=== PATIENT | female | born 1950 | race Caucasian/White ===

== ENCOUNTER 2020-04-04 11:45 | Emergency (ER) | payer MEDICARE, BC ==
[2020-04-04 12:15] VITALS: BP 136/62; PULSE 62
[2020-04-04 12:49] LABS: ANION GAP 11.2 mEq/L (7-13); CHLORIDE,CL 103 mmol/L (98-107); SODIUM,NA 139 mmol/L (136-145)
--- NOTE | 2020-04-04 12:53 | EDM.PDOC ---
ED HPI GENERAL MEDICAL PROBLEM - General Chief Complaint: Cardiovascular Problem Stated Complaint: HIGH BLOOD PRESSURE Time Seen by Provider: 04/04/20 12:10 Source of Information: Reports: Patient, Old Records, RN, RN Notes Reviewed History Limitations: Reports: No Limitations - History of Present Illness INITIAL COMMENTS - FREE TEXT/NARRATIVE: Patient presents to the ED via personal vehicle with complaints of hypertension. Per the patient report, she awoke with a headache and nausea, which she says is typical for her when her blood pressure is elevated. She states she took her prescribed Verapamil SR 120mg and rechecked her blood pressure; the reading was 216/103. She states she then took her Lisinopril 10mg, which she was instructed by her PCP to take PRN when her "blood pressure gets too high." The recheck following that medications was 170/80. She states she called her PCP clinic who then instructed her to report to the ED. She does attest to feeling anxious due to significant stressors, and has recently been prescribed Ativan 0.5mg BID. She also has been recently prescribed an albuterol inhaler for "asthma." - Related Data Allergies Allergy/AdvReac Type Severity Reaction Status Date / Time cephalexin monohydrate Allergy Abdominal Verified 04/04/20 12:20 [From Keflex] Pain NSAIDS (Non-Steroidal Allergy Cannot Verified 04/04/20 12:20 Anti-Inflamma Remember prednisone Allergy Swelling Verified 04/04/20 12:20 Sulfa (Sulfonamide Allergy Rash Verified 04/04/20 12:20 Antibiotics) Home Meds: Home Meds Acetaminophen [Tylenol Extra Strength] 500 mg PO Q4H PRN 09/10/13 [History] Albuterol [Ventolin HFA] 2 puff INH Q4H PRN 09/10/13 [History] B2/Vits A,C,E/Lut/Zeaxanth/Min [Icaps] 2 each PO DAILY 09/10/13 [History] Cholecalciferol (Vitamin D3) [Vitamin D3] 10,000 unit PO Q2D 09/10/13 [History] Cyanocobalamin (Vitamin B12) [Vitamin B12] 1,000 mcg IJ Q30D 09/10/13 [History] FLUoxetine HCl [Fluoxetine HCl] 40 mg PO DAILY 09/10/13 [History] Formoterol/Mometasone [Dulera 100 MCG/5 MCG] 2 puff IH BID PRN 09/10/13 [History] Hydrocodone/Acetaminophen [Hydrocodone-Acetaminophen 5-325] 1 - 2 tab PO Q4H PRN 09/10/13 [History] Lactobacillus Acidophilus [Probiotic] 1 each PO DAILY 09/10/13 [History] Levothyroxine Sodium [Synthroid] 150 mg PO DAILY 09/10/13 [History] QuiNINE [Qualaquin] 648 mg PO ASDIRECTED PRN 09/10/13 [History] Pantoprazole [ProTONIX] 40 mg PO DAILY #30 tab.cr 09/11/13 [Rx] Past Medical History Cardiovascular History: Reports: Hypertension, Other (See Below) Other Cardiovascular History: VALVE LEAK Respiratory History: Reports: Asthma Gastrointestinal History: Reports: Other (See Below) Other Gastrointestinal History: GASTRIC BYPASS Musculoskeletal History: Reports: Other (See Below) Other Musculoskeletal History: pt states her knees need replaced Social & Family History - Family History Family Medical History: Noncontributory - Tobacco Use Tobacco Use Status *Q: Never Tobacco User - Recreational Drug Use Recreational Drug Use: No ED ROS GENERAL - Review of Systems Review Of Systems: Comprehensive ROS is negative, except as noted in HPI. ED EXAM, GENERAL - Physical Exam Exam: See Below Exam Limited By: No Limitations General Appearance: Alert, WD/WN, No Apparent Distress Throat/Mouth: Normal Voice, No Airway Compromise Head: Atraumatic, Normocephalic Neck: Normal Inspection, Supple, Non-Tender, Full Range of Motion Respiratory/Chest: No Accessory Muscle Use, Chest Non-Tender, Rales (Right lower lobes). No: Wheezing, Stridor Cardiovascular: Normal Peripheral Pulses, Regular Rate, Rhythm, No Edema, No Gallop, No Murmur, No Rub Peripheral Pulses: 2+: Radial (L), Radial (R) GI/Abdominal: Normal Bowel Sounds, Soft, Non-Tender, No Distention, No Mass (Female) Exam: Deferred Rectal (Female) Exam: Deferred Back Exam: Normal Inspection, Full Range of Motion. No: CVA Tenderness (L), CVA Tenderness (R) Neurological: Alert, Oriented, CN II-XII Intact Skin Exam: Warm, Dry, Intact, Normal Color, No Rash Course - Vital Signs Last Recorded V/S: Last Vital Signs Temp 97.5 F 04/04/20 12:14 Pulse 62 04/04/20 12:14 Resp 16 04/04/20 12:14 BP 136/62 04/04/20 12:14 Pulse Ox 100 04/04/20 12:14 - Orders/Labs/Meds Orders: Active Orders 24 hr Category Date Time Status EKG Documentation Completion [RC] STAT Care 04/04/20 12:12 Active CULTURE URINE [RM] Stat Lab 04/04/20 12:43 Received Labs: Laboratory Tests 04/04/20 04/04/20 04/04/20 Range/Units 12:24 12:24 12:43 WBC 7.0 (5.0-10.0) 10^3/uL RBC 4.75 (4.2-5.4) 10^6/uL Hgb 13.5 (12.0-16.0) g/dL Hct 42.1 (37.0-47.0) % MCV 88.6 (80-100) fL MCH 28.4 (27.0-34.0) pg MCHC 32.1 L (33.0-35.0) g/dL Plt Count 251 (150-450) 10^3/uL Neut % (Auto) 64.9 (42.2-75.2) % Lymph % (Auto) 25.3 (20.5-50.1) % [place] % (Auto) 7.1 (2-8) % Eos % (Auto) 2.1 (1.0-3.0) % Baso % (Auto) 0.6 (0.0-1.0) % Sodium 139 (136-145) mmol/L Potassium 4.2 (3.5-5.1) mmol/L Chloride 103 (98-107) mmol/L Carbon Dioxide 29 (21-32) mmol/L Anion Gap 11.2 (7-13) mEq/L BUN 11 (7-18) mg/dL Creatinine 0.69 (0.55-1.02) mg/dL Est Cr Clr Drug Dosing 59.15 mL/min Estimated GFR (MDRD) > 60 BUN/Creatinine Ratio 15.9 (No establ ref range) Glucose 99 (74-99) mg/dL Calcium 8.7 (8.5-10.1) mg/dL Total Bilirubin 0.3 (0.2-1.0) mg/dL AST 18 (15-37) U/L ALT 26 (14-59) U/L Alkaline Phosphatase 70 (46-116) U/L Troponin I < 0.017 (0.000-0.056) ng/mL Total Protein 7.3 (6.4-8.2) g/dL Albumin 3.7 (3.4-5.0) g/dL Globulin 3.6 Albumin/Globulin Ratio 1.0 Urine Color Yellow (YELLOW) Urine Appearance Slightly cloudy (CLEAR) Urine pH 6.0 (5.0-9.0) Ur Specific [place] 1.020 (1.005-1.030) Urine Protein Negative (NEGATIVE) Urine Glucose (UA) Negative (NEGATIVE) Urine Ketones Negative (NEGATIVE) Urine Occult Blood Trace-intact H (NEGATIVE) Urine Nitrite Negative (NEGATIVE) Urine Bilirubin Negative (NEGATIVE) Urine Urobilinogen 0.2 (0.2-1.0) mg/dL Ur Leukocyte Esterase Small H (NEGATIVE) Urine RBC 0-5 /HPF Urine WBC 0-5 (0-5/HPF) /HPF Ur Epithelial Cells Few (NOT SEEN) /HPF Urine Opiates Screen (NEGATIVE) Ur Oxycodone Screen (NEGATIVE) Urine Methadone Screen (NEGATIVE) Ur Barbiturates Screen (NEGATIVE) U Tricyclic Antidepress (NEGATIVE) Ur Phencyclidine Scrn (NEGATIVE) Ur Amphetamine Screen (NEGATIVE) U Methamphetamines Scrn (NEGATIVE) Urine MDMA Screen (NEGATIVE) U Benzodiazepines Scrn (NEGATIVE) Urine Cocaine Screen (NEGATIVE) U Marijuana (THC) Screen (NEGATIVE) SARS CoV-2 RNA Rapid REJI (NEGATIVE) 04/04/20 04/04/20 Range/Units 12:43 13:20 WBC (5.0-10.0) 10^3/uL RBC (4.2-5.4) 10^6/uL Hgb (12.0-16.0) g/dL Hct (37.0-47.0) % MCV (80-100) fL MCH (27.0-34.0) pg MCHC (33.0-35.0) g/dL Plt Count (150-450) 10^3/uL Neut % (Auto) (42.2-75.2) % Lymph % (Auto) (20.5-50.1) % [place] % (Auto) (2-8) % Eos % (Auto) (1.0-3.0) % Baso % (Auto) (0.0-1.0) % Sodium (136-145) mmol/L Potassium (3.5-5.1) mmol/L Chloride (98-107) mmol/L Carbon Dioxide (21-32) mmol/L Anion Gap (7-13) mEq/L BUN (7-18) mg/dL Creatinine (0.55-1.02) mg/dL Est Cr Clr Drug Dosing mL/min Estimated GFR (MDRD) BUN/Creatinine Ratio (No establ ref range) Glucose (74-99) mg/dL Calcium (8.5-10.1) mg/dL Total Bilirubin (0.2-1.0) mg/dL AST (15-37) U/L ALT (14-59) U/L Alkaline Phosphatase (46-116) U/L Troponin I (0.000-0.056) ng/mL Total Protein (6.4-8.2) g/dL Albumin (3.4-5.0) g/dL Globulin Albumin/Globulin Ratio Urine Color (YELLOW) Urine Appearance (CLEAR) Urine pH (5.0-9.0) Ur Specific [place] (1.005-1.030) Urine Protein (NEGATIVE) Urine Glucose (UA) (NEGATIVE) Urine Ketones (NEGATIVE) Urine Occult Blood (NEGATIVE) Urine Nitrite (NEGATIVE) Urine Bilirubin (NEGATIVE) Urine Urobilinogen (0.2-1.0) mg/dL Ur Leukocyte Esterase (NEGATIVE) Urine RBC /HPF Urine WBC (0-5/HPF) /HPF Ur Epithelial Cells (NOT SEEN) /HPF Urine Opiates Screen Negative (NEGATIVE) Ur Oxycodone Screen Negative (NEGATIVE) Urine Methadone Screen Negative (NEGATIVE) Ur Barbiturates Screen Negative (NEGATIVE) U Tricyclic Antidepress Negative (NEGATIVE) Ur Phencyclidine Scrn Negative (NEGATIVE) Ur Amphetamine Screen Negative (NEGATIVE) U Methamphetamines Scrn Negative (NEGATIVE) Urine MDMA Screen Negative (NEGATIVE) U Benzodiazepines Scrn Positive H (NEGATIVE) Urine Cocaine Screen Negative (NEGATIVE) U Marijuana (THC) Screen Negative (NEGATIVE) SARS CoV-2 RNA Rapid REJI Negative (NEGATIVE) - Re-Assessments/Exams Free Text/Narrative Re-Assessment/Exam: 04/04/20 12:50 Will obtain CBC, CMP, Troponin, UA/Tox, and EKG 04/04/20 13:17 Will obtain COVID and Chest XRay for shortness of breath. 04/04/20 13:45 COVID negative. 04/04/20 14:19 CXR negative. Patient instructed to follow up with PCP for anxiety medication management. Departure - Departure Time of Disposition: 14:33 Disposition: Home, Self-Care 01 Condition: Good Clinical Impression: Anxiety, Shortness of breath Instructions: Shortness of Breath, Adult, [id number] Forms: ED Department Discharge Additional Instructions: Hypertension/Shortness of Breath work up negative for acute process. 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 Take all BP medications, as prescribed. Follow up with primary care provider regarding blood pressure management. Sepsis Event Note (ED) - Evaluation Sepsis Screening Result: No Definite Risk - Focused Exam Vital Signs: Vital Signs Temp Pulse Resp BP Pulse Ox 04/04/20 12:14 97.5 F 62 16 136/62 100 - My Orders Last 24 Hours: My Active Orders 04/04/20 12:12 EKG Documentation Completion [RC] STAT 04/04/20 12:43 CULTURE URINE [RM] Stat - Assessment/Plan Last 24 Hours: My Active Orders 04/04/20 12:12 EKG Documentation Completion [RC] STAT 04/04/20 12:43 CULTURE URINE [RM] Stat
--- NOTE | 2020-04-04 14:29 | CR ---
EXAMINATION: Chest 2V SEX: Female AGE: 69 years CLINICAL HISTORY: 69-year-old female complaining of Shortness of breath (right lower rales). INTERPRETATION: Negative. 1. 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 2. Normal cardiac silhouette (size and configuration). External traffic monitor specialist leads. No pulmonary vascular congestion, cephalization of flow, alveolar edema or dependent pleural effusion. 3. Surgical clips left upper quadrant and midepigastrium. 4. No lung mass, hilar lymphadenopathy or focal lobar pneumonia. 5. No atelectasis/collapse. No air trapping. 6. No pneumothorax or pneumomediastinum. Midline tracheal bronchial airway unremarkable. CONCLUSION: No acute or chronic cardiopulmonary abnormality.
== END 2020-04-04 14:40 | disposition home or self-care (01) ==
LOC: DL.ED 11:45
DX: F41.9 Anxiety disorder, unspecified (principal); I10 Essential (primary) hypertension; J45.909 Unspecified asthma, uncomplicated; Z79.899 Other long term (current) drug therapy; Z20.828 Contact with and (suspected) exposure to other viral communicable diseases; Z88.1 Allergy status to other antibiotic agents; Z88.8 Allergy status to other drugs, medicaments and biological substances; Z88.2 Allergy status to sulfonamides
CPT/HCPCS: 36415; 71046; 80053; 80305; 81001; 84484; 85025; 87086; 87088; 87186; 93005; 99284; U0002

== ENCOUNTER 2020-04-16 21:20 | Observation (INO) | payer MEDICARE, BC ==
[2020-04-16 22:14] LABS: ANION GAP 13.9 mEq/L (7-13); CHLORIDE,CL 101 mmol/L (98-107); SODIUM,NA 139 mmol/L (136-145)
--- NOTE | 2020-04-16 22:44 | CT ---
PROCEDURE INFORMATION: Exam: CT Head Without Contrast Exam date and time: 04/16/2020 10:28 PM Age: 69 years old Clinical indication: Other: Hypertension, tingling; Additional info: Hypertension, tingling TECHNIQUE: Imaging protocol: Computed tomography of the head without contrast. Radiation optimization: All CT scans at this facility use at least one of these dose optimization techniques: automated exposure control; mA and/or kV adjustment per patient size (includes targeted exams where dose is matched to clinical indication); or iterative reconstruction. COMPARISON: No relevant prior studies available. FINDINGS: Brain: Normal. No hemorrhage. Unremarkable white matter. No mass effect. Cerebral ventricles: No ventriculomegaly. Bones/joints: Unremarkable. No acute fracture. Paranasal sinuses: Visualized sinuses are unremarkable. No fluid levels. Mastoid air cells: Visualized mastoid air cells are well aerated. Vasculature: Atherosclerotic vascular calcifications involving distal vertebral arteries and distal internal carotid arteries bilaterally. Soft tissues: Extracalvarial soft tissues are unremarkable. IMPRESSION: Atherosclerotic vascular calcifications. There is no acute cortical infarction, hemorrhage or Mass.
--- NOTE | 2020-04-16 23:14 | EDM.PDOC ---
ED HPI GENERAL MEDICAL PROBLEM - General Chief Complaint: Cardiovascular Problem Stated Complaint: HIGH BLOOD PRESSURE Time Seen by Provider: 04/16/20 21:25 Source of Information: Reports: Patient History Limitations: Reports: No Limitations - History of Present Illness INITIAL COMMENTS - FREE TEXT/NARRATIVE: ED with c/o high blood pressure today, 180's this am, took 1/2 Lisinopril tonight elevated again, 216/d Had EMT family member recheck and still elevated. headache started earlier in autumn, then right arm felt tingling down to fingertips. No weakness, No change in sensation. . No difficulty with speecjh. Stated took additional 1.2 Lisinopril then drove over hour from [place] to ED. - Related Data Allergies Allergy/AdvReac Type Severity Reaction Status Date / Time cephalexin monohydrate Allergy Abdominal Verified 04/16/20 23:57 [From Keflex] Pain NSAIDS (Non-Steroidal Allergy Cannot Verified 04/16/20 23:57 Anti-Inflamma Remember prednisone Allergy Swelling Verified 04/16/20 23:57 Sulfa (Sulfonamide Allergy Rash Verified 04/16/20 23:57 Antibiotics) Home Meds: Home Meds Acetaminophen [Tylenol Extra Strength] 500 mg PO Q4H PRN 09/10/13 [History] Albuterol [Ventolin HFA] 2 puff INH Q4H PRN 09/10/13 [History] B2/Vits A,C,E/Lut/Zeaxanth/Min [Icaps] 2 each PO DAILY 09/10/13 [History] Cholecalciferol (Vitamin D3) [Vitamin D3] 5,000 unit PO Q2D 09/10/13 [History] FLUoxetine HCl [Fluoxetine HCl] 40 mg PO DAILY 09/10/13 [History] Formoterol/Mometasone [Dulera 100 MCG/5 MCG] 2 puff IH BID PRN 09/10/13 [History] Hydrocodone/Acetaminophen [Hydrocodone-Acetaminophen 5-325] 1 - 2 tab PO Q4H PRN 09/10/13 [History] QuiNINE [Qualaquin] 648 mg PO ASDIRECTED PRN 09/10/13 [History] Aspirin 81 mg PO DAILY 04/16/20 [History] LORazepam [Ativan] 1 dose PO DAILY PRN 04/16/20 [History] Verapamil HCl [Verapamil ER] 120 mg PO DAILY 04/16/20 [History] lisinopriL [Lisinopril] 10 mg PO DAILY PRN 04/16/20 [History] Levothyroxine Sodium [Synthroid] 112 mcg PO ACBREAKFAST 04/17/20 [History] Past Medical History Cardiovascular History: Reports: Hypertension, Other (See Below) Other Cardiovascular History: VALVE LEAK Respiratory History: Reports: Asthma Gastrointestinal History: Reports: Other (See Below) Other Gastrointestinal History: GASTRIC BYPASS Musculoskeletal History: Reports: Other (See Below) Other Musculoskeletal History: pt states her knees need replaced - Past Surgical History Cardiovascular Surgical History: Reports: Other (See Below) Other Cardiovascular Surgeries/Procedures[facility] Social & Family History - Family History Family Medical History: Noncontributory - Tobacco Use Tobacco Use Status *Q: Never Tobacco User Second Hand Smoke Exposure: No - Caffeine Use Caffeine Use: Reports: Soda - Recreational Drug Use Recreational Drug Use: No ED ROS GENERAL - Review of Systems Review Of Systems: Comprehensive ROS is negative, except as noted in HPI. ED EXAM, GENERAL - Physical Exam Exam: See Below Exam Limited By: No Limitations General Appearance: Alert, Anxious Eye Exam: Bilateral Eye: EOMI, Normal Fundi, PERRL Ears: Normal External Exam, Hearing Grossly Normal Nose: Normal Inspection Throat/Mouth: Normal Inspection, Normal Oropharynx Head: Atraumatic, Normocephalic Neck: Normal Inspection, Full Range of Motion Respiratory/Chest: No Respiratory Distress, Lungs Clear, Normal Breath Sounds Cardiovascular: Regular Rate, Rhythm, No Edema GI/Abdominal: Normal Bowel Sounds, Soft, Non-Tender Back Exam: Normal Inspection, Full Range of Motion Extremities: Normal Inspection, Normal Range of Motion Neurological: Alert, Oriented, CN II-XII Intact, Normal Cognition, Normal Gait. No: Abnormal Reflexes, Sensory/Motor Deficit Skin Exam: Warm, Dry, Intact, Normal Color Course - Vital Signs Text/Narrative:: Dr Jonesdmitting patient for observation. HTN emergency. Symptoms resolved. BP improved. Prior to transferring to bed on Medical floor. Last Recorded V/S: Last Vital Signs Temp 96.4 F L 04/16/20 23:54 Pulse 67 04/16/20 23:54 Resp 16 04/16/20 23:54 BP 179/75 H 04/16/20 23:54 Pulse Ox 100 04/16/20 23:54 - Orders/Labs/Meds Orders: Active Orders 24 hr Category Date Time Status CULTURE URINE [RM] Stat Lab 04/16/20 21:25 Received Medication Orders Acetaminophen (Tylenol) 650 mg PO Q4H PRN PRN Reason: Pain (Mild 1-3)/fever Hydrocodone Bitart/Acetaminophen ([place] 325-5 Mg) 1 - 2 tab PO Q4H PRN PRN Reason: Pain Albuterol (Proventil Hfa) 1 - 2 gm INH Q4H PRN PRN Reason: Dyspnea Aspirin (Aspirin) 81 mg PO DAILY ALEJANDRO Cholecalciferol (Vitamin D3) 125 mcg PO ONETIME ONE Stop: 04/17/20 09:01 Enoxaparin Sodium (Lovenox) 40 mg SUBCUT DAILY ALEJANDRO Fluoxetine HCl (Prozac) 40 mg PO DAILY ALEJANDRO Hydralazine HCl (Apresoline) 10 mg IVPUSH Q6H PRN PRN Reason: Hypertension Levothyroxine Sodium (Levothyroxine) 150 mcg PO ACBREAKFAST ALEJANDRO Lisinopril (Prinivil) 10 mg PO DAILY ALEJANDRO Lorazepam (Ativan) 0.5 mg PO DAILY PRN PRN Reason: Anxiety Mometasone Furoate/Formoterol Fumar (Dulera 100-5 Mcg) 2 puff IH BID PRN PRN Reason: Dyspnea Non-Formulary Medication (B2/Vits A,C,E/Lut/Zeaxanth/Min [Icaps]) 2 each PO DAILY ALEJANDRO Non-Formulary Medication (Lactobacillus Acidophilus [Probiotic]) 1 each PO DAILY ALEJANDRO Non-Formulary Medication (Quinine [Qualaquin]) 648 mg PO ASDIRECTED PRN PRN Reason: leg cramps Pantoprazole Sodium (Protonix) 40 mg PO ACBREAKFAST ALEJANDRO Verapamil HCl (Calan Sr) 120 mg PO DAILY ALEJANDRO Zolpidem Tartrate (Ambien) 5 mg PO BEDTIME PRN PRN Reason: Sleep Labs: Laboratory Tests 04/16/20 04/16/20 04/16/20 Range/Units 21:25 21:38 21:38 WBC 6.6 (5.0-10.0) 10^3/uL RBC 4.65 (4.2-5.4) 10^6/uL Hgb 13.4 (12.0-16.0) g/dL Hct 41.1 (37.0-47.0) % MCV 88.4 (80-100) fL MCH 28.8 (27.0-34.0) pg MCHC 32.6 L (33.0-35.0) g/dL Plt Count 258 (150-450) 10^3/uL Neut % (Auto) 55.7 (42.2-75.2) % Lymph % (Auto) 33.1 (20.5-50.1) % [place] % (Auto) 8.4 H (2-8) % Eos % (Auto) 2.0 (1.0-3.0) % Baso % (Auto) 0.8 (0.0-1.0) % PT (9.0-12.0) SEC INR (0.9-1.2) Sodium 139 (136-145) mmol/L Potassium 3.9 (3.5-5.1) mmol/L Chloride 101 (98-107) mmol/L Carbon Dioxide 28 (21-32) mmol/L Anion Gap 13.9 H (7-13) mEq/L BUN 13 (7-18) mg/dL Creatinine 0.81 (0.55-1.02) mg/dL Est Cr Clr Drug Dosing 50.38 mL/min Estimated GFR (MDRD) > 60 BUN/Creatinine Ratio 16.0 (No establ ref range) Glucose 103 H (74-99) mg/dL Calcium 9.1 (8.5-10.1) mg/dL Total Bilirubin 0.2 (0.2-1.0) mg/dL AST 28 (15-37) U/L ALT 34 (14-59) U/L Alkaline Phosphatase 59 (46-116) U/L Troponin I < 0.017 (0.000-0.056) ng/mL Total Protein 7.1 (6.4-8.2) g/dL Albumin 3.7 (3.4-5.0) g/dL Globulin 3.4 Albumin/Globulin Ratio 1.1 TSH, Ultra Sensitive 0.85 (0.36-3.74) uIU/mL Urine Color Yellow (YELLOW) Urine Appearance Clear (CLEAR) Urine pH 5.5 (5.0-9.0) Ur Specific [place] 1.020 (1.005-1.030) Urine Protein Negative (NEGATIVE) Urine Glucose (UA) Negative (NEGATIVE) Urine Ketones Negative (NEGATIVE) Urine Occult Blood Trace-intact H (NEGATIVE) Urine Nitrite Negative (NEGATIVE) Urine Bilirubin Negative (NEGATIVE) Urine Urobilinogen 0.2 (0.2-1.0) mg/dL Ur Leukocyte Esterase Small H (NEGATIVE) Urine RBC 0-5 /HPF Urine WBC 10-20 H (0-5/HPF) /HPF Ur Epithelial Cells Rare (NOT SEEN) /HPF Amorphous Sediment Rare (NOT SEEN) /HPF Urine Bacteria Occasional (0-FEW/HPF) /HPF Urine Mucus Not seen (NOT SEEN) /LPF SARS CoV-2 RNA Rapid REJI (NEGATIVE) 04/16/20 04/16/20 Range/Units 21:38 23:18 WBC (5.0-10.0) 10^3/uL RBC (4.2-5.4) 10^6/uL Hgb (12.0-16.0) g/dL Hct (37.0-47.0) % MCV (80-100) fL MCH (27.0-34.0) pg MCHC (33.0-35.0) g/dL Plt Count (150-450) 10^3/uL Neut % (Auto) (42.2-75.2) % Lymph % (Auto) (20.5-50.1) % [place] % (Auto) (2-8) % Eos % (Auto) (1.0-3.0) % Baso % (Auto) (0.0-1.0) % PT 9.8 (9.0-12.0) SEC INR 1.0 (0.9-1.2) Sodium (136-145) mmol/L Potassium (3.5-5.1) mmol/L Chloride (98-107) mmol/L Carbon Dioxide (21-32) mmol/L Anion Gap (7-13) mEq/L BUN (7-18) mg/dL Creatinine (0.55-1.02) mg/dL Est Cr Clr Drug Dosing mL/min Estimated GFR (MDRD) BUN/Creatinine Ratio (No establ ref range) Glucose (74-99) mg/dL Calcium (8.5-10.1) mg/dL Total Bilirubin (0.2-1.0) mg/dL AST (15-37) U/L ALT (14-59) U/L Alkaline Phosphatase (46-116) U/L Troponin I (0.000-0.056) ng/mL Total Protein (6.4-8.2) g/dL Albumin (3.4-5.0) g/dL Globulin Albumin/Globulin Ratio TSH, Ultra Sensitive (0.36-3.74) uIU/mL Urine Color (YELLOW) Urine Appearance (CLEAR) Urine pH (5.0-9.0) Ur Specific [place] (1.005-1.030) Urine Protein (NEGATIVE) Urine Glucose (UA) (NEGATIVE) Urine Ketones (NEGATIVE) Urine Occult Blood (NEGATIVE) Urine Nitrite (NEGATIVE) Urine Bilirubin (NEGATIVE) Urine Urobilinogen (0.2-1.0) mg/dL Ur Leukocyte Esterase (NEGATIVE) Urine RBC /HPF Urine WBC (0-5/HPF) /HPF Ur Epithelial Cells (NOT SEEN) /HPF Amorphous Sediment (NOT SEEN) /HPF Urine Bacteria (0-FEW/HPF) /HPF Urine Mucus (NOT SEEN) /LPF SARS CoV-2 RNA Rapid REJI Negative (NEGATIVE) Meds: Medications Generic Name Dose Route Start Last Admin Trade Name Freq PRN Reason Stop Dose Admin Acetaminophen 650 mg 04/16/20 23:54 Tylenol PO Q4H PRN Pain (Mild 1-3)/fever Hydrocodone Bitart/Acetaminophen 1 - 2 tab 04/16/20 23:56 [place] 325-5 Mg PO Q4H PRN Pain Albuterol 1 - 2 gm 04/16/20 23:56 Proventil Hfa INH Q4H PRN Dyspnea Aspirin 81 mg 04/17/20 09:00 Aspirin PO DAILY [facility] Cholecalciferol 125 mcg 04/17/20 09:00 Vitamin D3 PO 04/17/20 09:01 ONETIME ONE Enoxaparin Sodium 40 mg 04/17/20 09:00 Lovenox SUBCUT DAILY ALEJANDRO Fluoxetine HCl 40 mg 04/17/20 09:00 Prozac PO DAILY ALEJANDRO Hydralazine HCl 10 mg 04/17/20 00:51 Apresoline IVPUSH Q6H PRN Hypertension Levothyroxine Sodium 150 mcg 04/17/20 06:00 Levothyroxine PO ACBREAKFAST ALEJANDRO Lisinopril 10 mg 04/17/20 09:00 Prinivil PO DAILY [facility] Lorazepam 0.5 mg 04/16/20 23:56 Ativan PO DAILY PRN Anxiety Mometasone Furoate/Formoterol Fumar 2 puff 04/16/20 23:56 Dulera 100-5 Mcg IH BID PRN Dyspnea Non-Formulary Medication 2 each 04/17/20 09:00 B2/Vits A,C,E/Lut/Zeaxanth/Min [Icaps] PO DAILY ALEJANDRO Non-Formulary Medication 1 each 04/17/20 09:00 Lactobacillus Acidophilus [Probiotic] PO DAILY [facility] Non-Formulary Medication 648 mg 04/16/20 23:56 Quinine [Qualaquin] PO ASDIRECTED PRN leg cramps Pantoprazole Sodium 40 mg 04/17/20 06:00 Protonix PO ACBREAKFAST [facility] Verapamil HCl 120 mg 04/17/20 09:00 Calan Sr PO DAILY [facility] Zolpidem Tartrate 5 mg 04/16/20 23:54 Ambien PO BEDTIME PRN Sleep Discontinued Medications Generic Name Dose Route Start Last Admin Trade Name Freq PRN Reason Stop Dose Admin Cholecalciferol 125 mcg 04/17/20 01:15 04/17/20 01:27 Vitamin D3 PO 04/17/20 01:16 Not Given ONETIME ONE Diltiazem HCl 120 mg 04/17/20 09:00 Cardizem Cd PO DAILY [facility] Non-Formulary Medication 10,000 unit 04/16/20 23:45 04/17/20 05:06 Cholecalciferol (Vitamin D3) [Vitamin D3] PO Not Given Q2D [facility] Departure - Departure Time of Disposition: 23:30 Disposition: Refer to Observation Condition: Fair Clinical Impression: Anxiety, Palpitations Hypertensive heart disease Qualifiers: Heart failure presence: unspecified whether heart failure present Qualified Code(s): I11.9 - Hypertensive heart disease without heart failure Sepsis Event Note (ED) - Evaluation Sepsis Screening Result: No Definite Risk - Focused Exam Vital Signs: Vital Signs Temp Pulse Resp BP Pulse Ox 04/16/20 22:54 54 L 16 142/59 H 99 04/16/20 21:53 97.4 F 56 L 14 139/93 H 100 04/16/20 21:41 97.4 F 56 L 15 184/78 H 99 - My Orders Last 24 Hours: My Active Orders 04/16/20 21:25 CULTURE URINE [RM] Stat - Assessment/Plan Last 24 Hours: My Active Orders 04/16/20 21:25 CULTURE URINE [] Stat
[2020-04-16] MEDS ORDERED: Non-Formulary Medication 1 Each (Cholecalciferol (Vitamin D3) [Vitamin D3] 10,000 UNIT) PO SCH (23:45)
[2020-04-16] MEDS ORDERED: Acetaminophen 325 MG Tab PO PRN (23:54)
[2020-04-16] MEDS ORDERED: Zolpidem 5 MG Tab PO PRN (23:54)
[2020-04-16] MEDS ORDERED: QUININE PO PRN (23:56)
[2020-04-16] MEDS ORDERED: LORazepam 0.5 MG Tab PO PRN (23:56)
[2020-04-16] MEDS ORDERED: Formoterol/Mometasone 100-5 MCG 8.8 GM Inhaler IH PRN (23:56)
[2020-04-16] MEDS ORDERED: Acetaminophen/HYDROcodone 325-5 MG Tab PO PRN (23:56)
[2020-04-16] MEDS ORDERED: Albuterol 6.7 GM Inhaler INH PRN (23:56)
--- NOTE | 2020-04-16 23:56 | PCM.HP ---
H&P History of Present Illness - General Date of Service: 04/16/20 Admit Problem/Dx: Admission Diagnosis/Problem Admission Diagnosis/Problem Hypertensive urgency Source of Information: Patient History Limitations: Reports: No Limitations - History of Present Illness Initial Comments - Free Text/Narative: Patient is a 69-year-old female with a medical history of hypertension, gastric bypass surgery, hyperlipidemia, hypothyroidism, papillary thyroid carcinoma, supraventricular tachycardia, asthma, SABINA, depression, subclavian artery stenosis status post right carotid-subclavian bypass who presented with complaints of elevated blood pressure, tingling of right arm and lips. Patient states she measures her blood pressure this morning and was found to be elevated at 198/85. She took her verapamil and half a 10 mg tablet of lisinopril. The blood pressure came down to 150s systolic. However, her blood pressure also went up to 202 systolic. She took a second 5 mg dose of lisinopril but blood pressure persisted in the 190s upon recheck about an hour later. During the times of blood pressure was remarkably elevated, patient experienced burning sensation in her right arm and tingling sensation in her right forearm as well as tingling sensation in her lips. This lasted for about an hour before resolving spontaneously when her blood pressure improved. She also experienced fluttery sensation in her heart and diaphoresis. Patient thought her blood pressure better could also be faulty. She got her blood pressure rechecked by EMT and it was still elevated. She then presented to the ER for evaluation. Her blood pressure was found to be 184/78 with a heart rate of 56. Patient denies abdominal pain, chest pain, orthopnea, leg swelling, diarrhea, nausea, emesis, dysuria, fever, cough or shortness of breath. She also denies weakness in any limb or facial muscles. She has had no previous history of stroke. Labs were unremarkable and CT of head was negative for acute finding. - Related Data Allergies/Adverse Reactions: Allergies Allergy/AdvReac Type Severity Reaction Status Date / Time cephalexin monohydrate Allergy Abdominal Verified 04/16/20 23:57 [From Keflex] Pain NSAIDS (Non-Steroidal Allergy Cannot Verified 04/16/20 23:57 Anti-Inflamma Remember prednisone Allergy Swelling Verified 04/16/20 23:57 Sulfa (Sulfonamide Allergy Rash Verified 04/16/20 23:57 Antibiotics) Home Medications: Home Meds Acetaminophen [Tylenol Extra Strength] 500 mg PO Q4H PRN 09/10/13 [History] Albuterol [Ventolin HFA] 2 puff INH Q4H PRN 09/10/13 [History] B2/Vits A,C,E/Lut/Zeaxanth/Min [Icaps] 2 each PO DAILY 09/10/13 [History] Cholecalciferol (Vitamin D3) [Vitamin D3] 10,000 unit PO Q2D 09/10/13 [History] FLUoxetine HCl [Fluoxetine HCl] 40 mg PO DAILY 09/10/13 [History] Formoterol/Mometasone [Dulera 100 MCG/5 MCG] 2 puff IH BID PRN 09/10/13 [History] Hydrocodone/Acetaminophen [Hydrocodone-Acetaminophen 5-325] 1 - 2 tab PO Q4H PRN 09/10/13 [History] QuiNINE [Qualaquin] 648 mg PO ASDIRECTED PRN 09/10/13 [History] Aspirin 81 mg PO DAILY 04/16/20 [History] LORazepam [Ativan] 1 dose PO DAILY PRN 04/16/20 [History] Verapamil HCl [Verapamil ER] 120 mg PO DAILY 04/16/20 [History] lisinopriL [Lisinopril] 10 mg PO DAILY 04/16/20 [History] Levothyroxine Sodium [Synthroid] 112 mcg PO ACBREAKFAST 04/17/20 [History] Past Medical History Cardiovascular History: Reports: Hypertension, Other (See Below) Other Cardiovascular History: VALVE LEAK Respiratory History: Reports: Asthma Gastrointestinal History: Reports: Other (See Below) Other Gastrointestinal History: GASTRIC BYPASS Musculoskeletal History: Reports: Other (See Below) Other Musculoskeletal History: pt states her knees need replaced - Past Surgical History Cardiovascular Surgical History: Reports: Other (See Below) Other Cardiovascular Surgeries/Procedures: Heart Bypass in January 2020 in [facility] Social & Family History - Family History Family Medical History: Noncontributory - Tobacco Use Tobacco Use Status *Q: Never Tobacco User Second Hand Smoke Exposure: No - Caffeine Use Caffeine Use: Reports: Soda - Recreational Drug Use Recreational Drug Use: No H&P Review of Systems - Review of Systems: Review Of Systems: See Below General: Reports: Diaphoresis HEENT: Reports: No Symptoms Pulmonary: Reports: No Symptoms Cardiovascular: Reports: Palpitations, Blood Pressure Problem Gastrointestinal: Reports: No Symptoms Genitourinary: Reports: No Symptoms Musculoskeletal: Reports: No Symptoms Skin: Reports: No Symptoms Psychiatric: Reports: No Symptoms Neurological: Reports: Tingling Hematologic/Lymphatic: Reports: No Symptoms Immunologic: Reports: No Symptoms Exam - Exam Exam: See Below - Vital Signs Vital Signs: Last Vital Signs Temp 97.4 F 04/16/20 21:53 Pulse 54 L 04/16/20 22:54 Resp 16 04/16/20 22:54 BP 142/59 H 04/16/20 22:54 Pulse Ox 99 04/16/20 22:54 Weight: 182 lb 2 oz - Exam General: Alert, Oriented, 4 HEENT: PERRLA, Hearing Intact, Mucosa Moist & [place], Nares Patent, Normal Nasal Septum, Posterior Pharynx Clear, Conjunctiva Clear, EOMI, EACs Clear, TMs Clear Neck: Supple, Trachea Midline, 2 Lungs: Clear to Auscultation, Normal Respiratory Effort Cardiovascular: Regular Rate, Regular Rhythm GI/Abdominal Exam: Normal Bowel Sounds, Soft, Non-Tender, No Organomegaly, No Distention, No Abnormal Bruit, No Mass, Pelvis Stable Back Exam: Normal Inspection, Full Range of Motion, NT Extremities: Normal Inspection, Normal Range of Motion, Non-Tender, No Pedal Edema, Normal Capillary Refill Skin: Warm, Dry, Intact Neurological: Cranial Nerves Intact, Reflexes Equal Bilateral Neuro Extensive - Mental Status: Alert, Oriented x3, Normal Mood/Affect, Normal Cognition Neuro Extensive - Motor, Sensory, Reflexes: CN II-XII Intact, Normal Gait, Normal Reflexes Psychiatric: Alert, Normal Affect, Normal Mood - Patient Data Lab Results Last 24 hrs: Laboratory Results - last 24 hr 04/16/20 04/16/20 04/16/20 Range/Units 21:25 21:38 21:38 WBC 6.6 (5.0-10.0) 10^3/uL RBC 4.65 (4.2-5.4) 10^6/uL Hgb 13.4 (12.0-16.0) g/dL Hct 41.1 (37.0-47.0) % MCV 88.4 (80-100) fL MCH 28.8 (27.0-34.0) pg MCHC 32.6 L (33.0-35.0) g/dL Plt Count 258 (150-450) 10^3/uL Neut % (Auto) 55.7 (42.2-75.2) % Lymph % (Auto) 33.1 (20.5-50.1) % [place] % (Auto) 8.4 H (2-8) % Eos % (Auto) 2.0 (1.0-3.0) % Baso % (Auto) 0.8 (0.0-1.0) % PT (9.0-12.0) SEC INR (0.9-1.2) Sodium 139 (136-145) mmol/L Potassium 3.9 (3.5-5.1) mmol/L Chloride 101 (98-107) mmol/L Carbon Dioxide 28 (21-32) mmol/L Anion Gap 13.9 H (7-13) mEq/L BUN 13 (7-18) mg/dL Creatinine 0.81 (0.55-1.02) mg/dL Est Cr Clr Drug Dosing 50.38 mL/min Estimated GFR (MDRD) > 60 BUN/Creatinine Ratio 16.0 (No establ ref range) Glucose 103 H (74-99) mg/dL Calcium 9.1 (8.5-10.1) mg/dL Total Bilirubin 0.2 (0.2-1.0) mg/dL AST 28 (15-37) U/L ALT 34 (14-59) U/L Alkaline Phosphatase 59 (46-116) U/L Troponin I < 0.017 (0.000-0.056) ng/mL Total Protein 7.1 (6.4-8.2) g/dL Albumin 3.7 (3.4-5.0) g/dL Globulin 3.4 Albumin/Globulin Ratio 1.1 TSH, Ultra Sensitive 0.85 (0.36-3.74) uIU/mL Urine Color Yellow (YELLOW) Urine Appearance Clear (CLEAR) Urine pH 5.5 (5.0-9.0) Ur Specific [place] 1.020 (1.005-1.030) Urine Protein Negative (NEGATIVE) Urine Glucose (UA) Negative (NEGATIVE) Urine Ketones Negative (NEGATIVE) Urine Occult Blood Trace-intact H (NEGATIVE) Urine Nitrite Negative (NEGATIVE) Urine Bilirubin Negative (NEGATIVE) Urine Urobilinogen 0.2 (0.2-1.0) mg/dL Ur Leukocyte Esterase Small H (NEGATIVE) Urine RBC 0-5 /HPF Urine WBC 10-20 H (0-5/HPF) /HPF Ur Epithelial Cells Rare (NOT SEEN) /HPF Amorphous Sediment Rare (NOT SEEN) /HPF Urine Bacteria Occasional (0-FEW/HPF) /HPF Urine Mucus Not seen (NOT SEEN) /LPF SARS CoV-2 RNA Rapid REJI (NEGATIVE) 04/16/20 04/16/20 Range/Units 21:38 23:18 WBC (5.0-10.0) 10^3/uL RBC (4.2-5.4) 10^6/uL Hgb (12.0-16.0) g/dL Hct (37.0-47.0) % MCV (80-100) fL MCH (27.0-34.0) pg MCHC (33.0-35.0) g/dL Plt Count (150-450) 10^3/uL Neut % (Auto) (42.2-75.2) % Lymph % (Auto) (20.5-50.1) % [place] % (Auto) (2-8) % Eos % (Auto) (1.0-3.0) % Baso % (Auto) (0.0-1.0) % PT 9.8 (9.0-12.0) SEC INR 1.0 (0.9-1.2) Sodium (136-145) mmol/L Potassium (3.5-5.1) mmol/L Chloride (98-107) mmol/L Carbon Dioxide (21-32) mmol/L Anion Gap (7-13) mEq/L BUN (7-18) mg/dL Creatinine (0.55-1.02) mg/dL Est Cr Clr Drug Dosing mL/min Estimated GFR (MDRD) BUN/Creatinine Ratio (No establ ref range) Glucose (74-99) mg/dL Calcium (8.5-10.1) mg/dL Total Bilirubin (0.2-1.0) mg/dL AST (15-37) U/L ALT (14-59) U/L Alkaline Phosphatase (46-116) U/L Troponin I (0.000-0.056) ng/mL Total Protein (6.4-8.2) g/dL Albumin (3.4-5.0) g/dL Globulin Albumin/Globulin Ratio TSH, Ultra Sensitive (0.36-3.74) uIU/mL Urine Color (YELLOW) Urine Appearance (CLEAR) Urine pH (5.0-9.0) Ur Specific [place] (1.005-1.030) Urine Protein (NEGATIVE) Urine Glucose (UA) (NEGATIVE) Urine Ketones (NEGATIVE) Urine Occult Blood (NEGATIVE) Urine Nitrite (NEGATIVE) Urine Bilirubin (NEGATIVE) Urine Urobilinogen (0.2-1.0) mg/dL Ur Leukocyte Esterase (NEGATIVE) Urine RBC /HPF Urine WBC (0-5/HPF) /HPF Ur Epithelial Cells (NOT SEEN) /HPF Amorphous Sediment (NOT SEEN) /HPF Urine Bacteria (0-FEW/HPF) /HPF Urine Mucus (NOT SEEN) /LPF SARS CoV-2 RNA Rapid REJI Negative (NEGATIVE) Result Diagrams: 04/16/20 21:38 04/16/20 21:38 Problem List Initiated/Reviewed/Updated: Yes Orders Last 24hrs: Active Orders 24 hr Category Date Time Status Admission Diagnosis [ADT] Stat ADT 04/16/20 23:44 Ordered Admission Status [Patient Status] [ADT] Routine ADT 04/16/20 23:44 Active Antiembolic Devices [RC] PER UNIT ROUTINE Care 04/16/20 23:56 Ordered Cardiac Monitoring [RC] CONTINUOUS Care 04/16/20 23:55 Ordered EKG 12 Lead [EKG Documentation Completion] [RC] STAT Care 04/16/20 21:55 Active Oxygen Therapy [RC] PRN Care 04/16/20 23:54 Ordered Up ad Sarah [RC] ASDIRECTED Care 04/16/20 23:54 Ordered VTE/DVT Education [RC] PER UNIT ROUTINE Care 04/16/20 23:54 Ordered Vital Signs [RC] Q4H Care 04/16/20 23:54 Ordered Regular Diet [DIET] Diet 04/17/20 Breakfast Ordered CULTURE URINE [RM] Stat Lab 04/16/20 21:25 Received Acetaminophen [TylenoL] Med 04/16/20 23:54 Ordered 650 mg PO Q4H PRN Enoxaparin [Lovenox] Med 04/17/20 09:00 Ordered 40 mg SUBCUT DAILY Zolpidem [Ambien] Med 04/16/20 23:54 Ordered 5 mg PO BEDTIME PRN Antiembolic Hose [OM.PC] Per Unit Routine Oth 04/16/20 23:55 Ordered Resuscitation Status Routine Resus Stat 04/16/20 23:54 Ordered Assessment/Plan Comment:: Hypertensive urgency Resume home antihypertensives As needed hydralazine Right upper extremity and lips tingling Right upper extremity tingling is chronic and likely due to her history of subclavian artery stenosis. Differentials here include radiculopathy (patient has history of neck and back pain), TIA vs angina equivalent. EKG without acute ST changes. CT head without ischemia or bleeding. Troponin negative. Consider MRI brain tomorrow morning Monitor on telemetry Control blood pressure Hypothyroidism Resume home Synthroid Depression Resume home medications Subclavian artery stenosis status post right carotid-subclavian bypass Continue aspirin Asthma Continue inhalers/nebs History of SVT Telemetry Continue home verapamil
[2020-04-17] MEDS ORDERED: hydrALAZINE 20 MG/ML SDV IVPUSH PRN (00:51)
[2020-04-17] MEDS ORDERED: Cholecalciferol (Vitamin D3) 25 MCG Tab PO ONE ×2 (01:15→09:00)
[2020-04-17] MEDS ORDERED: Levothyroxine 150 MCG Tab PO SCH (06:00)
[2020-04-17] MEDS ORDERED: Pantoprazole 40 MG Tab.CR PO SCH (06:00)
[2020-04-17 07:12] LABS: ANION GAP 10.9 mEq/L (7-13); CHLORIDE,CL 103 mmol/L (98-107); SODIUM,NA 140 mmol/L (136-145)
[2020-04-17 07:57] VITALS: BP 126/54; PULSE 51
[2020-04-17] MEDS ORDERED: [UNRECOGNIZED DRUG - OTHER] PO SCH (09:00)
[2020-04-17] MEDS ORDERED: Verapamil 240 MG Tab.ER PO SCH (09:00)
[2020-04-17] MEDS ORDERED: Lisinopril 10 MG Tab PO SCH (09:00)
[2020-04-17] MEDS ORDERED: FLUoxetine 10 MG Cap PO SCH (09:00)
[2020-04-17] MEDS ORDERED: Aspirin 81 MG Tab.Chew PO SCH (09:00)
[2020-04-17] MEDS ORDERED: LACTOBACILLUS ACIDOPHILUS PO SCH (09:00)
[2020-04-17] MEDS ORDERED: Enoxaparin 40 MG/0.4 ML Syringe SUBCUT SCH (09:00)
[2020-04-17] MEDS ORDERED: Diltiazem 120 MG Cap.CD PO SCH (09:00)
--- NOTE | 2020-04-17 11:37 | MR ---
PROCEDURE INFORMATION: Exam: MR Head Without Contrast Exam date and time: 04/17/2020 9:24 AM Age: 69 years old Clinical indication: Other: TIA TECHNIQUE: Imaging protocol: MR of the head without contrast. COMPARISON: CT Head wo Cont 04/16/2020 10:28 PM FINDINGS: Brain: Few areas of T2 prolongation in the cerebral white matter are nonspecific, but likely secondary to mild microvascular disease. Diffusion images are normal. No evidence of acute infarction. No evidence of acute intracranial hemorrhage, although evaluation is limited by absence of gradient echo imaging. No acute hemorrhage seen on recent comparison CT. No extra-axial fluid collections. Ventricles and cerebrospinal fluid spaces are normal in size and configuration for the patient's age. There is no evidence of mass-effect or midline shift. Flow voids of the [place] and major cerebral vascular structures appear intact. Craniocervical junction appears unremarkable, with normal position of cerebellar tonsils and no evidence of Chiari I malformation. Cerebral ventricles: Normal. No ventriculomegaly. Bones/joints: There is approximately 7 mm T1 and T2 hyperintense rounded lesion in right posterior occipital skull corresponding to small lucency on CT and consistent with a small hemangioma. Paranasal sinuses: Normal as visualized. No acute sinusitis. Mastoid air cells: No significant mastoid effusion. Orbits: There have been bilateral intraocular lens replacements likely related to cataract surgery. Soft tissues: Unremarkable as visualized. IMPRESSION: Mild microvascular change. No evidence acute infarct.
--- NOTE | 2020-04-17 11:57 | PCM.DCSUM1 ---
Discharge Summary - Hospital Course Free Text/Narrative:: Patient is a 69-year-old female with a medical history of hypertension, gastric bypass surgery, hyperlipidemia, hypothyroidism, papillary thyroid carcinoma, supraventricular tachycardia, asthma, SABINA, depression, subclavian artery stenosis status post right carotid-subclavian bypass who presented with complaints of elevated blood pressure up to 202 systolic, tingling of right arm and lips. Labs were unremarkable and CT of head and MRI of brain were negative for acute finding. Problems addressed during this authorization Hypertensive urgency Resume home antihypertensives Right upper extremity and lips tingling Right upper extremity tingling is chronic and likely due to her history of subclavian artery stenosis vs radiculopathy (patient has history of neck and back pain). Hypothyroidism Resume home Synthroid Depression Resume home medications Subclavian artery stenosis status post right carotid-subclavian bypass Continue aspirin Asthma Continue inhalers/nebs History of SVT Continue home verapamil Diagnosis: Stroke: No - Discharge Data Discharge Date: 04/17/20 Discharge Disposition: Home, Self-Care 01 Condition: Good - Referral to Home Health Primary Care Physician: PCP None - Discharge Plan *PRESCRIPTION DRUG MONITORING PROGRAM REVIEWED*: Not Applicable *COPY OF PRESCRIPTION DRUG MONITORING REPORT IN PATIENT EFRAIN: Not Applicable Home Medications: Home Meds Acetaminophen [Tylenol Extra Strength] 500 mg PO Q4H PRN 09/10/13 [History] Albuterol [Ventolin HFA] 2 puff INH Q4H PRN 09/10/13 [History] B2/Vits A,C,E/Lut/Zeaxanth/Min [Icaps] 2 each PO DAILY 09/10/13 [History] Cholecalciferol (Vitamin D3) [Vitamin D3] 5,000 unit PO Q2D 09/10/13 [History] FLUoxetine HCl [Fluoxetine HCl] 40 mg PO DAILY 09/10/13 [History] Formoterol/Mometasone [Dulera 100 MCG/5 MCG] 2 puff IH BID PRN 09/10/13 [History] Hydrocodone/Acetaminophen [Hydrocodone-Acetaminophen 5-325] 1 - 2 tab PO Q4H PRN 09/10/13 [History] QuiNINE [Qualaquin] 648 mg PO ASDIRECTED PRN 09/10/13 [History] Aspirin 81 mg PO DAILY 04/16/20 [History] LORazepam [Ativan] 1 dose PO DAILY PRN 04/16/20 [History] Verapamil HCl [Verapamil ER] 120 mg PO DAILY 04/16/20 [History] lisinopriL [Lisinopril] 10 mg PO DAILY PRN 04/16/20 [History] Levothyroxine Sodium [Synthroid] 112 mcg PO ACBREAKFAST 04/17/20 [History] Patient Handouts: How to Take Your Blood Pressure, [id number], Form - Blood Pressure Record Sheet Referrals: PCP,None [Primary Care Provider] - - Discharge Summary/Plan Comment DC Time >30 min.: Yes - General Info Date of Service: 04/17/20 Admission Dx/Problem (Free Text: Admission Diagnosis/Problem Admission Diagnosis/Problem Hypertensive urgency Subjective Update: Patient seen and examined today. Doing well. No new complaints today. Functional Status: Reports: Pain Controlled - Review of Systems General: Reports: No Symptoms HEENT: Reports: No Symptoms Pulmonary: Reports: No Symptoms Cardiovascular: Reports: No Symptoms Gastrointestinal: Reports: No Symptoms Genitourinary: Reports: No Symptoms Musculoskeletal: Reports: No Symptoms Skin: Reports: No Symptoms Neurological: Reports: No Symptoms Psychiatric: Reports: No Symptoms - Patient Data Vitals - Most Recent: Last Vital Signs Temp 97.3 F 04/17/20 07:56 Pulse 51 L 04/17/20 07:56 Resp 14 04/17/20 07:56 BP 126/54 L 04/17/20 09:42 Pulse Ox 99 04/17/20 07:56 Weight - Most Recent: 182 lb 2 oz I&O - Last 24 hours: Intake & Output 04/16/20 04/17/20 04/17/20 22:59 06:59 14:59 Output Total 900 Balance -900 Lab Results - Last 24 hrs: Laboratory Results - last 24 hr 04/16/20 04/16/20 04/16/20 Range/Units 21:25 21:38 21:38 WBC 6.6 (5.0-10.0) 10^3/uL RBC 4.65 (4.2-5.4) 10^6/uL Hgb 13.4 (12.0-16.0) g/dL Hct 41.1 (37.0-47.0) % MCV 88.4 (80-100) fL MCH 28.8 (27.0-34.0) pg MCHC 32.6 L (33.0-35.0) g/dL Plt Count 258 (150-450) 10^3/uL Neut % (Auto) 55.7 (42.2-75.2) % Lymph % (Auto) 33.1 (20.5-50.1) % [place] % (Auto) 8.4 H (2-8) % Eos % (Auto) 2.0 (1.0-3.0) % Baso % (Auto) 0.8 (0.0-1.0) % PT (9.0-12.0) SEC INR (0.9-1.2) Sodium 139 (136-145) mmol/L Potassium 3.9 (3.5-5.1) mmol/L Chloride 101 (98-107) mmol/L Carbon Dioxide 28 (21-32) mmol/L Anion Gap 13.9 H (7-13) mEq/L BUN 13 (7-18) mg/dL Creatinine 0.81 (0.55-1.02) mg/dL Est Cr Clr Drug Dosing 50.38 mL/min Estimated GFR (MDRD) > 60 BUN/Creatinine Ratio 16.0 (No establ ref range) Glucose 103 H (74-99) mg/dL Calcium 9.1 (8.5-10.1) mg/dL Magnesium (1.8-2.4) mg/dL Total Bilirubin 0.2 (0.2-1.0) mg/dL AST 28 (15-37) U/L ALT 34 (14-59) U/L Alkaline Phosphatase 59 (46-116) U/L Troponin I < 0.017 (0.000-0.056) ng/mL Total Protein 7.1 (6.4-8.2) g/dL Albumin 3.7 (3.4-5.0) g/dL Globulin 3.4 Albumin/Globulin Ratio 1.1 TSH, Ultra Sensitive 0.85 (0.36-3.74) uIU/mL Urine Color Yellow (YELLOW) Urine Appearance Clear (CLEAR) Urine pH 5.5 (5.0-9.0) Ur Specific [place] 1.020 (1.005-1.030) Urine Protein Negative (NEGATIVE) Urine Glucose (UA) Negative (NEGATIVE) Urine Ketones Negative (NEGATIVE) Urine Occult Blood Trace-intact H (NEGATIVE) Urine Nitrite Negative (NEGATIVE) Urine Bilirubin Negative (NEGATIVE) Urine Urobilinogen 0.2 (0.2-1.0) mg/dL Ur Leukocyte Esterase Small H (NEGATIVE) Urine RBC 0-5 /HPF Urine WBC 10-20 H (0-5/HPF) /HPF Ur Epithelial Cells Rare (NOT SEEN) /HPF Amorphous Sediment Rare (NOT SEEN) /HPF Urine Bacteria Occasional (0-FEW/HPF) /HPF Urine Mucus Not seen (NOT SEEN) /LPF SARS CoV-2 RNA Rapid REJI (NEGATIVE) 04/16/20 04/16/20 04/17/20 Range/Units 21:38 23:18 06:10 WBC (5.0-10.0) 10^3/uL RBC (4.2-5.4) 10^6/uL Hgb (12.0-16.0) g/dL Hct (37.0-47.0) % MCV (80-100) fL MCH (27.0-34.0) pg MCHC (33.0-35.0) g/dL Plt Count (150-450) 10^3/uL Neut % (Auto) (42.2-75.2) % Lymph % (Auto) (20.5-50.1) % [place] % (Auto) (2-8) % Eos % (Auto) (1.0-3.0) % Baso % (Auto) (0.0-1.0) % PT 9.8 (9.0-12.0) SEC INR 1.0 (0.9-1.2) Sodium 140 (136-145) mmol/L Potassium 3.9 (3.5-5.1) mmol/L Chloride 103 (98-107) mmol/L Carbon Dioxide 30 (21-32) mmol/L Anion Gap 10.9 (7-13) mEq/L BUN 9 (7-18) mg/dL Creatinine 0.72 (0.55-1.02) mg/dL Est Cr Clr Drug Dosing 56.68 mL/min Estimated GFR (MDRD) > 60 BUN/Creatinine Ratio (No establ ref range) Glucose 91 (74-99) mg/dL Calcium 8.7 (8.5-10.1) mg/dL Magnesium 2.2 (1.8-2.4) mg/dL Total Bilirubin (0.2-1.0) mg/dL AST (15-37) U/L ALT (14-59) U/L Alkaline Phosphatase (46-116) U/L Troponin I (0.000-0.056) ng/mL Total Protein (6.4-8.2) g/dL Albumin (3.4-5.0) g/dL Globulin Albumin/Globulin Ratio TSH, Ultra Sensitive (0.36-3.74) uIU/mL Urine Color (YELLOW) Urine Appearance (CLEAR) Urine pH (5.0-9.0) Ur Specific [place] (1.005-1.030) Urine Protein (NEGATIVE) Urine Glucose (UA) (NEGATIVE) Urine Ketones (NEGATIVE) Urine Occult Blood (NEGATIVE) Urine Nitrite (NEGATIVE) Urine Bilirubin (NEGATIVE) Urine Urobilinogen (0.2-1.0) mg/dL Ur Leukocyte Esterase (NEGATIVE) Urine RBC /HPF Urine WBC (0-5/HPF) /HPF Ur Epithelial Cells (NOT SEEN) /HPF Amorphous Sediment (NOT SEEN) /HPF Urine Bacteria (0-FEW/HPF) /HPF Urine Mucus (NOT SEEN) /LPF SARS CoV-2 RNA Rapid REJI Negative (NEGATIVE) Med Orders - Current: Current Medications Acetaminophen (Tylenol) 650 mg PO Q4H PRN PRN Reason: Pain (Mild 1-3)/fever Last Admin: 04/17/20 06:00 Dose: 650 mg Documented by: Hydrocodone Bitart/Acetaminophen ([place] 325-5 Mg) 1 - 2 tab PO Q4H PRN PRN Reason: Pain Albuterol (Proventil Hfa) 1 - 2 gm INH Q4H PRN PRN Reason: Dyspnea Aspirin (Aspirin) 81 mg PO DAILY [facility] Last Admin: 04/17/20 09:07 Dose: 81 mg Documented by: Enoxaparin Sodium (Lovenox) 40 mg SUBCUT DAILY [facility] Last Admin: 04/17/20 09:12 Dose: 40 mg Documented by: Fluoxetine HCl (Prozac) 40 mg PO DAILY [facility] Last Admin: 04/17/20 09:10 Dose: 40 mg Documented by: Hydralazine HCl (Apresoline) 10 mg IVPUSH Q6H PRN PRN Reason: Hypertension Levothyroxine Sodium (Levothyroxine) 150 mcg PO ACBREAKFAST [facility] Last Admin: 04/17/20 05:48 Dose: 150 mcg Documented by: Lisinopril (Prinivil) 10 mg PO DAILY [facility] Last Admin: 04/17/20 09:42 Dose: 10 mg Documented by: Lorazepam (Ativan) 0.5 mg PO DAILY PRN PRN Reason: Anxiety Mometasone Furoate/Formoterol Fumar (Dulera 100-5 Mcg) 2 puff IH BID PRN PRN Reason: Dyspnea Non-Formulary Medication (B2/Vits A,C,E/Lut/Zeaxanth/Min [Icaps]) 2 each PO DAILY ALEJANDRO Non-Formulary Medication (Lactobacillus Acidophilus [Probiotic]) 1 each PO DAILY ALEJANDRO Non-Formulary Medication (Quinine [Qualaquin]) 648 mg PO ASDIRECTED PRN PRN Reason: leg cramps Pantoprazole Sodium (Protonix) 40 mg PO ACBREAKFAST [facility] Last Admin: 04/17/20 05:48 Dose: 40 mg Documented by: Verapamil HCl ([place] Sr) 120 mg PO DAILY [facility] Zolpidem Tartrate (Ambien) 5 mg PO BEDTIME PRN PRN Reason: Sleep Discontinued Medications Cholecalciferol (Vitamin D3) 125 mcg PO ONETIME ONE Stop: 04/17/20 01:16 Last Admin: 04/17/20 01:27 Dose: Not Given Documented by: Cholecalciferol (Vitamin D3) 125 mcg PO ONETIME ONE Stop: 04/17/20 09:01 Last Admin: 04/17/20 09:08 Dose: 125 mcg Documented by: Diltiazem HCl (Cardizem Cd) 120 mg PO DAILY [facility] Non-Formulary Medication (Cholecalciferol (Vitamin D3) [Vitamin D3]) 10,000 unit PO Q2D [facility] Last Admin: 04/17/20 05:06 Dose: Not Given Documented by: - Exam General: Reports: Alert, Oriented HEENT: Reports: Pupils Equal, Pupils Reactive, EOMI, Mucous Membr. Moist/[place] Neck: Reports: Supple Lungs: Reports: Clear to Auscultation, Normal Respiratory Effort Cardiovascular: Reports: Regular Rate, Regular Rhythm GI/Abdominal Exam: Normal Bowel Sounds, Soft, Non-Tender, No Organomegaly, No Distention, No Abnormal Bruit, No Mass, Pelvis Stable Back Exam: Reports: Normal Inspection, Full Range of Motion Extremities: Normal Inspection, Normal Range of Motion, Non-Tender, No Pedal Edema, Normal Capillary Refill Skin: Reports: Warm, Dry, Intact Neurological: Reports: No New Focal Deficit Psy/Mental Status: Reports: Alert, Normal Affect, Normal Mood
== END 2020-04-17 14:00 | disposition home or self-care (01) ==
LOC: DL.ED 21:20 → UNDOADMOB 23:35 → DL.MS 23:35
PROVIDERS: ADMIT Internal Medicine; ATTEND Internal Medicine
DX: I16.0 Hypertensive urgency (principal); R20.2 Paresthesia of skin; E03.9 Hypothyroidism, unspecified; F32.9 Major depressive disorder, single episode, unspecified; J45.909 Unspecified asthma, uncomplicated; I11.9 Hypertensive heart disease without heart failure; F41.9 Anxiety disorder, unspecified; I47.1 Supraventricular tachycardia; Z20.828 Contact with and (suspected) exposure to other viral communicable diseases; Z98.890 Other specified postprocedural states; Z79.899 Other long term (current) drug therapy; Z88.2 Allergy status to sulfonamides; Z88.8 Allergy status to other drugs, medicaments and biological substances
CPT/HCPCS: 36415; 70450; 70551; 80048; 80053; 81001; 83735; 84443; 84484; 85025; 85610; 87086; 93005; 96372; 99285; A9270; G0378; J1650; U0002; 87088; 87186

== ENCOUNTER 2020-06-20 15:57 | Inpatient (IN) | payer MEDICARE, BC ==
[2020-06-20] MEDS ORDERED: Ondansetron 4 MG Tab.DIS PO PRN (16:41)
[2020-06-20] MEDS ORDERED: oxyCODONE 5 MG Tab PO PRN (16:41)
[2020-06-20] MEDS ORDERED: LORazepam 0.5 MG Tab PO PRN (16:48)
[2020-06-20] MEDS ORDERED: Formoterol/Mometasone 100-5 MCG 8.8 GM Inhaler IH PRN (16:48)
[2020-06-20] MEDS: metroNIDAZOLE/Normal Saline 500 MG in Premix Bag 100 BAG IV SCH (17:19)
[2020-06-20] MEDS: Sodium Chloride 0.9% 1,000 ML IV SCH (17:20)
[2020-06-20 18:50] LABS: ANION GAP 15.9 mEq/L (7-13)
[2020-06-20] MEDS ORDERED: Water For Injection, Sterile 20 ML ONE (20:31)
--- NOTE | 2020-06-20 20:37 | HP ---
CHIEF COMPLAINT: Dizziness and diarrhea. HISTORY OF PRESENT ILLNESS: The patient is 69-year-old female with past medical history of asthma, hypothyroidism, hypertension, hyperlipidemia, subclavian artery stenosis who recently got diagnosed with COVID infection, 06/07/2020, was admitted directly from [facility] because the patient for the last 3 days has been having diarrhea about 6 times a day bowel movement, and she was complaining of fever and some headache and dizziness and some abdominal pain and nausea. Prior to this, she was given some antibiotics in [place] and also recently was given amoxicillin by Adelaide Mckeon, who is her primary care provider. But, despite being given these 2 antibiotics, she has not improved and just not feeling good and tired and weak. Because of this, she was then admitted for further evaluation and management. PAST MEDICAL HISTORY: Remarkable for obstructive sleep apnea, asthma, hypothyroidism, hypertension, hyperlipidemia, subclavian artery stenosis. FAMILY HISTORY: Noncontributory. SOCIAL HISTORY: The patient is from [place]. She is a nonsmoker and nonalcohol drinker. REVIEW OF SYSTEMS: As in HPI. The rest of the review of systems is negative. HOME MEDICATIONS: Lisinopril, verapamil, quinine, levothyroxine, lorazepam, hydrocodone, Dulera, aspirin, albuterol, Tylenol. ALLERGIES: Cephalexin, NSAIDs, prednisone, statin, and sulfa. PHYSICAL EXAMINATION: General: The patient is alert and oriented, not in any acute distress. Vital signs: Taken from the clinic, blood pressure is 87/58, pulse of 98, temperature of 101.6, saturation is 97% on room air. SHEENT: Normocephalic. Skin turgor is slightly diminished. Neck: Supple. No JVD. No lymphadenopathy. Heart: Regular rate and rhythm. Normal S1 and S2. No gallops. No rubs. Lungs: Equal bilaterally. No crackles, no wheezing. Abdomen: Soft, nontender, bowel sounds positive. Extremities: Negative for any pedal edema. No calf tenderness. ADMITTING DIAGNOSES: 1. Gastroenteritis/diarrhea. 2. Hypotension, most likely from dehydration and secondary to diarrhea. 3. Coronavirus disease infection. 4. Obstructive sleep apnea. 5. Hypothyroidism. 6. Hyperlipidemia. TREATMENT PLAN: The patient is going to be admitted to acute care. She will be empirically started on IV antibiotics (Flagyl) and she will be on IV fluids. Her blood pressure medication will be held and she will be on DVT prophylaxis and the rest of the management as necessary. We will also send her stool for C diff as she had history of C diff colitis. The patient is a full code. [facility] /[id number] JARED
[2020-06-20] MEDS: Pantoprazole 40 MG Vial IVPUSH SCH (20:42)
[2020-06-21] MEDS: metroNIDAZOLE/Normal Saline 500 MG in Premix Bag 100 BAG IV SCH ×3 (00:58→16:58)
[2020-06-21] MEDS: Sodium Chloride 0.9% 1,000 ML IV SCH ×3 (01:03→21:23)
[2020-06-21] MEDS: Levothyroxine 112 MCG Tab PO SCH (06:16)
[2020-06-21] MEDS: Acetaminophen 325 MG Tab PO PRN ×2 (08:07→21:17)
[2020-06-21] MEDS: Enoxaparin 40 MG/0.4 ML Syringe SUBCUT SCH (08:08)
[2020-06-21] MEDS: FLUoxetine 10 MG Cap PO SCH (08:10)
--- NOTE | 2020-06-21 10:36 | PN ---
DATE: 06/21/2020 SUBJECTIVE: The patient had a good night sleep and so far, has not had any problems with diarrhea and she is still feeling slightly dizzy, but denies any chest pain, shortness of breath or any significant abdominal pain. OBJECTIVE: Vital signs: Blood pressure is 110/69, pulse 71, respirations of 18, temperature of 97.4, saturation is 94%. Heart: Regular rate and rhythm. Normal S1 and S2. No gallops. No rubs. Lungs: Equal bilaterally. No crackles, no wheezing. Abdomen: Soft, nontender. Bowel sounds positive. Extremities: Negative for any pedal edema. No calf tenderness. MEDICATIONS: Reviewed. PLAN: We will continue with her present management and we are awaiting the results of the stool C. diff, and if the patient continues to do well, anticipate discharge in a day or two. [facility] /[id number] MTDD
[2020-06-21] MEDS: Aspirin 81 MG Tab.Chew PO SCH (11:41)
[2020-06-21] MEDS ORDERED: Water For Injection, Sterile 20 ML ONE (21:00)
[2020-06-21] MEDS: Pantoprazole 40 MG Vial IVPUSH SCH (21:13)
[2020-06-21] MEDS: Albuterol 6.7 GM Inhaler INH PRN (21:18)
[2020-06-21] MEDS: Nystatin Topical Powder 30 GM Bottle TOP SCH (21:20)
[2020-06-22] MEDS: metroNIDAZOLE/Normal Saline 500 MG in Premix Bag 100 BAG IV SCH ×2 (00:52→08:40)
[2020-06-22] MEDS: Acetaminophen 325 MG Tab PO PRN (05:42)
[2020-06-22] MEDS: Levothyroxine 112 MCG Tab PO SCH (05:43)
[2020-06-22] MEDS: Albuterol 6.7 GM Inhaler INH PRN (05:43)
[2020-06-22] MEDS: Sodium Chloride 0.9% 1,000 ML IV SCH (05:46)
[2020-06-22 08:37] VITALS: BP 128/73; PULSE 74
[2020-06-22] MEDS: Aspirin 81 MG Tab.Chew PO SCH (08:38)
[2020-06-22] MEDS: FLUoxetine 10 MG Cap PO SCH (08:39)
[2020-06-22] MEDS: Enoxaparin 40 MG/0.4 ML Syringe SUBCUT SCH (08:39)
[2020-06-22] MEDS: Nystatin Topical Powder 30 GM Bottle TOP SCH (08:43)
--- NOTE | 2020-06-22 11:38 | DISCH ---
DATE: 06/22/2020 FINAL DIAGNOSES: 1. Gastroenteritis/diarrhea. 2. Dizziness secondary to hypotension. 3. Dehydration. 4. Hypotension secondary to dehydration. 5. Coronavirus disease infection. 6. Obstructive sleep apnea. 7. Hypothyroidism. 8. Hyperlipidemia. BRIEF HISTORY OF PRESENT ILLNESS: The patient is a 69-year-old female who was admitted directly from the clinic because of dizziness, dehydration, diarrhea, and hypotension. LABS: Pertinent lab, x-ray, and other tests on admission: CBC unremarkable. Comp panel: Sodium was 133, chloride 97, anion gap of 15.9, BUN of 19, creatinine is 1.17, glucose is 139. C-reactive protein is 2.2. The rest of the panel unremarkable. HOSPITAL COURSE: The patient was admitted to [facility]. She was empirically started on IV fluids and was also empirically started on IV Flagyl for her diarrhea. Her stool was sent for C diff, but results are still pending, and the patient's blood pressure medication was held. The patient did well with the above regimen. The patient's diarrhea improved and appetite slowly improved, and the dizziness also improved and the rest of the hospital course was uncomplicated, and she was subsequently discharged. CONDITION ON DISCHARGE: Improved. DISCHARGE INSTRUCTIONS: The patient is going to follow up with Tenisha Osuna in 1 week and we will continue with Flagyl 500 mg t.i.d. for the next 1 week, and I am going to hold her lisinopril and verapamil, but we will resume her Synthroid and the rest of her other home medication. Again, she is going to follow up with Tenisha Osuna 1 week for a recheck. [facility] /[id number]
--- NOTE | 2020-06-24 19:47 | PN ---
DATE: 06/22/2020 SUBJECTIVE: The patient is doing much better. She denies anymore dizziness. Appetite has been good and so far has not had any loose bowel movement. She still has some mild cough, but oxygen saturation has been good. OBJECTIVE: Vital Signs: Blood pressure is 128/73, pulse 74, respiration of 18, temperature of 98, saturation is 98% on room air. Heart: Regular rate and rhythm. Normal S1 and S2. No gallops. No rubs. Lungs: Equal bilaterally. No crackles, no wheezing. Abdomen: Soft, nontender. Bowel sounds positive. Extremities: Negative for any pedal edema. No calf tenderness. MEDICATIONS: Reviewed. PLAN: We will discharge the patient home today and we will continue with yl for the next 5 days and we will have her follow up with Tenisha Curtis in 1 week for a recheck. I am going to hold her current lisinopril and verapamil as her blood pressure has been doing good, but I told the patient that this may need to be resumed once her blood pressure starts creeping up again. [facility] /[id number]
== END 2020-06-22 13:10 | disposition home or self-care (01) | DRG 391 ==
LOC: DL.MS 15:57
PROVIDERS: ADMIT Internal Medicine; ATTEND Internal Medicine
PROC: 8E0ZXY6 Isolation (ICD-10-PCS; principal; 2020-06-20)
DX: K52.9 Noninfective gastroenteritis and colitis, unspecified (principal); U07.1 COVID-19; I95.9 Hypotension, unspecified; E86.0 Dehydration; E03.9 Hypothyroidism, unspecified; E78.5 Hyperlipidemia, unspecified; G47.33 Obstructive sleep apnea (adult) (pediatric); J45.909 Unspecified asthma, uncomplicated; I10 Essential (primary) hypertension; I77.1 Stricture of artery; Z88.1 Allergy status to other antibiotic agents; Z88.8 Allergy status to other drugs, medicaments and biological substances; Z88.2 Allergy status to sulfonamides; Z79.899 Other long term (current) drug therapy; Z79.82 Long term (current) use of aspirin; Z79.890 Hormone replacement therapy
CPT/HCPCS: 36415; 80053; 83735; 85025; 86140; 87493; A9270-GY; C9113; J1650; J3490; J7030